=== PATIENT | male | born 1970 | race Two or more races ===

== ENCOUNTER 2023-05-31 08:38 | Emergency (ER) | payer OTHER ==
[2023-05-31 09:02] VITALS: BP 132/88; PULSE 84; RESP 16; TEMP 98.3; BMI 27.3
[2023-05-31] MEDS ORDERED: ACETAMINOPHEN 325 MG TABLET (FP) ONE (09:49)
[2023-05-31] MEDS: ACETAMINOPHEN 500 MG TABLET (FP) PO ONE (09:53)
== END 2023-05-31 11:12 | disposition home or self-care (01) ==
LOC: JER 08:38
DX: S20.212A Contusion of left front wall of thorax, initial encounter (principal); S00.81XA Abrasion of other part of head, initial encounter; S30.811A Abrasion of abdominal wall, initial encounter; S60.511A Abrasion of right hand, initial encounter; R07.89 Other chest pain; V43.52XA Car driver injured in collision with other type car in traffic accident, initial encounter
CPT/HCPCS: 71046-TC-FY; 73110-TC-RT-FY; 73130-TC-RT-FY; 93005; 93010; 99284-25